=== PATIENT | female | born 1945 | race African-American/Black ===

== ENCOUNTER 2016-08-15 18:04 | Emergency (ER) | payer MEDICARE, OTHER ==
[~2016-08-15 18:04] MED LIST: ACCUNEB INH; GLUCPH PO; LORTAB 5 PO; METFORMIN; OMEPRAZOLE; PRILO PO; PRIN10 PO; XANAX1 MG PO; ZESTORETIC PO
== END 2016-08-15 22:49 | disposition home or self-care (01) ==
LOC: ER 18:04
PROC: 0SS9XZZ Reposition Right Hip Joint, External Approach (ICD-10-PCS; principal; 2016-08-15)
DX: S73.014A Posterior dislocation of right hip, initial encounter (principal); I10 Essential (primary) hypertension; E11.9 Type 2 diabetes mellitus without complications; Z87.891 Personal history of nicotine dependence; Z88.0 Allergy status to penicillin; Z88.6 Allergy status to analgesic agent; Z79.84 Long term (current) use of oral hypoglycemic drugs; Z79.899 Other long term (current) drug therapy; W19.XXXA Unspecified fall, initial encounter
CPT/HCPCS: 73502-RT; 96374; 99284; J1170